=== PATIENT | male | born 1975 | race Caucasian/White ===

== ENCOUNTER 2020-07-01 14:36 | Emergency (ER) | payer MEDICARE, OTHER ==
[~2020-07-01 14:36] MED LIST: BACTRIM DS TAB1 EACH PO; CLEOCIN HCL300 MG PO; CLEOCIN40 GM TOP; COLACE 100MG C100 MG PO; FLEXERIL 10 MG10 MG PO; IBUPROFEN600 MG PO; KEFLEX CAP 500500 MG PO; LIPITOR40 MG PO; LODINE CAP 300300 MG PO; METFORMIN HCL500 MG PO; NAPROSYN500 MG PO; NORCO 5-325 TA1 EACH PO; NORCO 7.5-3251 EACH PO; NOVOLOG SQ; TAMIFLU75 MG PO; TRESIBA FL100 UNIT/1 SQ; ZOFRAN ODT 4 MG4 MG PO
[2020-07-01] MEDS ORDERED: BACTRIM 400-801 EACH PO (15:46)
[2020-07-01] MEDS ORDERED: PERCOCET 5-3251 EACH PO (16:53)
== END 2020-07-01 16:47 | disposition home or self-care (01) ==
LOC: ER1 14:36
DX: L02.811 Cutaneous abscess of head [any part, except face] (principal); L02.11 Cutaneous abscess of neck
CPT/HCPCS: 10061; 99283

== ENCOUNTER → 2021-02-19 | Outpatient (CLI) | payer MEDICARE ==
[~2021-02-19] MED LIST changes: +BACTRIM 400-801 EACH PO; +PERCOCET 5-3251 EACH PO
== END ==
LOC: OPSV 15:00
DX: L02.212 Cutaneous abscess of back [any part, except buttock and flank] (principal)
CPT/HCPCS: G0463

== ENCOUNTER 2021-03-29 15:01 | Emergency (ER) | payer MEDICARE ==
[2021-03-29] MEDS ORDERED: CEPHALEXIN500 M1 PO (16:15)
== END 2021-03-29 16:20 | disposition home or self-care (01) ==
LOC: ER1 15:01
DX: T63.301A Toxic effect of unspecified spider venom, accidental (unintentional), initial encounter (principal); E11.9 Type 2 diabetes mellitus without complications; Z90.49 Acquired absence of other specified parts of digestive tract; Z79.4 Long term (current) use of insulin
CPT/HCPCS: 99282

== ENCOUNTER 2022-03-16 20:37 | Emergency (ER) | payer MEDICARE ==
[~2022-03-16 20:37] MED LIST changes: +CEPHALEXIN500 M1 PO
[2022-03-16] MEDS ORDERED: BACTROBAN OINT22 GM EXT (21:31)
[2022-03-16] MEDS ORDERED: CLINDAMYCIN HC300 MG PO (21:31)
== END 2022-03-16 21:50 | disposition home or self-care (01) ==
LOC: ER1 20:37
DX: L03.114 Cellulitis of left upper limb (principal); E11.9 Type 2 diabetes mellitus without complications
CPT/HCPCS: 99282